=== PATIENT | female | born 1985 | race Caucasian/White ===

== ENCOUNTER 2019-08-01 05:21 | Emergency (ER) | payer OTHER ==
[~2019-08-01] VITALS: Ht 162.6 cm; Wt 88.9 kg
[2019-08-01] MEDS ORDERED: ONDANSETRON 2MG/ML, 2ML ONE (05:43)
[2019-08-01] MEDS ORDERED: MORPHINE SULFATE 4 MG/ML, 1ML ONE ×2 (05:43→06:27)
--- NOTE | 2019-08-01 05:45 | NUR ---
CT PENDING NEG. BETA.
[2019-08-01] MEDS: MORPHINE SULFATE 4 MG/ML, 1ML IVPush PRN ×2 (05:59→06:34)
[2019-08-01] MEDS ORDERED: SODIUM CHLORIDE FLUSH 10ML SYR IVF ONE (06:00)
[2019-08-01] MEDS ORDERED: ONDANSETRON 2MG/ML, 2ML IVPush ONE (06:00)
[2019-08-01 06:13] LABS: BASOPHILS # (AUTO) 0.01 x10^3/uL (0-0.1); BASOPHILS % (AUTO) 0 % (0-1); EOSINOPHILS # (AUTO) 0.11 x10^3/uL (0-0.4); EOSINOPHILS % (AUTO) 2 % (1-7); LYMPHOCYTES # (AUTO) 1.55 x10^3/uL (1-3.4); LYMPHOCYTES % (AUTO) 23 % (22-44); MD NO; MEAN CORPUSCULAR HEMOGLOBIN 31.5 pg (27.0-34.8); MEAN CORPUSCULAR HGB CONC 34.3 g/dL (32.4-35.8); MEAN CORPUSCULAR VOLUME 91.8 fL (80-100); MONOCYTES # (AUTO) 0.53 x10^3/uL (0.2-0.8); MONOCYTES % (AUTO) 8 % (2-9); NEUTROPHILS # (AUTO) 4.59 x10^3/uL (1.8-6.8); NEUTROPHILS % (AUTO) 68 % (42-75); PLATELET COUNT 154 x10^3/uL (130-400); RED BLOOD COUNT 4.58 x10^6/uL (3.82-5.3); RED CELL DISTRIBUTION WIDTH 12.1 % (9.6-15.2)
[2019-08-01] MEDS ORDERED: KETOROLAC 30 MG/1 ML ONE (06:15)
[2019-08-01 06:24] LABS: ALANINE AMINOTRANSFERASE 31 U/L (12-78); ALBUMIN 3.7 g/dL (3.4-5.0); ANION GAP 7 mmol/L (5-15); CALCIUM 8.8 mg/dL (8.5-10.1); CHLORIDE 111 mmol/L (98-107); CREATININE 1.08 mg/dL (0.55-1.02)
[2019-08-01] MEDS ORDERED: SODIUM CHLORIDE 0.9% 1,000 ML IV ONE (06:26)
[2019-08-01 06:28] LABS: ALKALINE PHOSPHATASE 36 U/L (45-117); BILIRUBIN,TOTAL 0.7 mg/dL (0.2-1.0)
[2019-08-01] MEDS ORDERED: KETOROLAC 30 MG/1 ML IVPush ONE ×2 (06:30→08:00)
[2019-08-01 06:39] LABS: CULTURE INDICATED? YES; MICROSCOPIC INDICATED
[2019-08-01 06:40] VITALS: BP 110/72
--- NOTE | 2019-08-01 06:55 | NUR ---
REPORT RECEIVED FROM ARMANDO DIA. PT RESTING ON Bocom W/ CALL LIGHT IN [facility].
--- NOTE | 2019-08-01 07:55 | NUR ---
STRAIGHT CATH URINE SPECIMEN COLLECTED AND SENT TO LAB. PT UPDATED ON POC. CALL LIGHT IN [place].
[2019-08-01 08:20] LABS: MICROSCOPIC INDICATED
[2019-08-01 08:32] LABS: CULTURE INDICATED? NO
--- NOTE | 2019-08-01 09:15 | NUR ---
Patient given discharge instructions and they have confirmed that they understand the instructions. Patient ambulatory with steady gait.
== END 2019-08-01 09:16 | disposition home or self-care (01) ==
LOC: ED 06:49
DX: N13.2 Hydronephrosis with renal and ureteral calculous obstruction (principal); N28.9 Disorder of kidney and ureter, unspecified; Z41.1 Encounter for cosmetic surgery
CPT/HCPCS: 36415; 74176; 80053; 81001; 83690; 84703; 85025; 87086; 96361; 96374; 96375; 96376; 99284; J1885; J2270; J2405; J7030

== ENCOUNTER 2019-08-04 07:51 | Emergency (ER) | payer OTHER ==
[~2019-08-04] VITALS: Ht 162.6 cm; Wt 88.0 kg
[2019-08-04] MEDS ORDERED: SODIUM CHLORIDE FLUSH 10ML SYR IVF ONE (08:30)
[2019-08-04 08:44] LABS: MICROSCOPIC AUTO
[2019-08-04 08:47] LABS: MEAN CORPUSCULAR HEMOGLOBIN 31.7 pg (27.0-34.8); MEAN CORPUSCULAR HGB CONC 34.6 g/dL (32.4-35.8); MEAN CORPUSCULAR VOLUME 91.6 fL (80-100); MEAN PLATELET VOLUME 8.9 fL (7.4-10.4); PLATELET COUNT 209 x10^3/uL (130-400); RED BLOOD COUNT 4.78 x10^6/uL (3.82-5.3); RED CELL DISTRIBUTION WIDTH 11.9 % (9.6-15.2)
[2019-08-04 08:49] LABS: CULTURE INDICATED? NO
[2019-08-04 08:50] LABS: ALANINE AMINOTRANSFERASE 35 U/L (12-78); ANION GAP 7 mmol/L (5-15); CALCIUM 9.1 mg/dL (8.5-10.1); CHLORIDE 107 mmol/L (98-107)
[2019-08-04 08:53] LABS: ALKALINE PHOSPHATASE 41 U/L (45-117); BILIRUBIN,TOTAL 0.4 mg/dL (0.2-1.0); TOTAL PROTEIN 7.7 g/dL (6.4-8.2)
[2019-08-04 09:07] LABS: BASOPHILS # (AUTO) 0.03 x10^3/uL (0-0.1); BASOPHILS % (AUTO) 0 % (0-1); EOSINOPHILS # (AUTO) 0.08 x10^3/uL (0-0.4); EOSINOPHILS % (AUTO) 1 % (1-7); LYMPHOCYTES % (AUTO) 16 % (22-44); MD SCAN; MONOCYTES # (AUTO) 0.49 x10^3/uL (0.2-0.8); MONOCYTES % (AUTO) 6 % (2-9); NEUTROPHILS # (AUTO) 5.91 x10^3/uL (1.8-6.8); NEUTROPHILS % (AUTO) 77 % (42-75)
[2019-08-04] MEDS ORDERED: ONDANSETRON 2MG/ML, 2ML IVPush ONE (09:30)
[2019-08-04] MEDS ORDERED: HYDROmorphone 2 MG/ML, 1ML IVPush PRN (09:30)
[2019-08-04] MEDS ORDERED: HYDROmorphone 1 MG/ML, 1ML INJ ONE (09:35)
[2019-08-04] MEDS ORDERED: ONDANSETRON 2MG/ML, 2ML ONE (09:35)
--- NOTE | 2019-08-04 09:49 | NUR ---
Pt to [facility] from [facility]. Has been seen by [facility], urine & blood tests back. Has renal stones, dx 2 days ago, using meds, drinking fluids but pain in ABD & low back & painful urination remains.
--- NOTE | 2019-08-04 10:02 | NUR ---
Medicated as per emar for 01/19 LBP. Placed on continuous SPO2 & NIBP monitoring.
--- NOTE | 2019-08-04 10:17 | NUR ---
millie askew spoke with dr aviles
--- NOTE | 2019-08-04 10:22 | NUR ---
Pain 6/10 at this time. No nausea.
[2019-08-04] MEDS ORDERED: KETOROLAC 30 MG/1 ML IVPush ONE (10:30)
[2019-08-04] MEDS ORDERED: KETOROLAC 30 MG/1 ML ONE (10:40)
--- NOTE | 2019-08-04 10:54 | NUR ---
Toradol IV given for continued pain. Will reassess for effect & give 2nd dose dilauded prn. Pt OOB to restroom w/out difficulty .
--- NOTE | 2019-08-04 10:57 | NUR ---
REPORT FROM TOAN DIA.
[2019-08-04 11:32] VITALS: BP 125/78
== END 2019-08-04 11:34 | disposition home or self-care (01) ==
LOC: ED 10:03
DX: N13.2 Hydronephrosis with renal and ureteral calculous obstruction (principal)
CPT/HCPCS: 36415; 74018; 80053; 81001; 85025; 99284; J1170; J2405

== ENCOUNTER 2020-02-06 12:01 | Day surgery (SDC) | payer OTHER ==
[2020-02-03 11:09] LABS: BASOPHILS % (AUTO) 0 % (0-1); EOSINOPHILS # (AUTO) 0.07 x10^3/uL (0-0.4); EOSINOPHILS % (AUTO) 1 % (1-7); LYMPHOCYTES # (AUTO) 1.24 x10^3/uL (1-3.4); LYMPHOCYTES % (AUTO) 22 % (22-44); MD NO; MEAN CORPUSCULAR HEMOGLOBIN 31.4 pg (27.0-34.8); MEAN CORPUSCULAR VOLUME 92.2 fL (80-100); MEAN PLATELET VOLUME 8.8 fL (7.4-10.4); MONOCYTES # (AUTO) 0.29 x10^3/uL (0.2-0.8); MONOCYTES % (AUTO) 5 % (2-9); NEUTROPHILS # (AUTO) 4.08 x10^3/uL (1.8-6.8); NEUTROPHILS % (AUTO) 72 % (42-75); PLATELET COUNT 210 x10^3/uL (130-400); RED BLOOD COUNT 4.34 x10^6/uL (3.82-5.3); RED CELL DISTRIBUTION WIDTH 12.4 % (9.6-15.2)
[2020-02-03 11:18] LABS: ANION GAP 4 mmol/L (5-15); CALCIUM 9.2 mg/dL (8.5-10.1); CHLORIDE 110 mmol/L (98-107); CREATININE 0.92 mg/dL (0.55-1.02)
[2020-02-03 11:22] LABS: HCG UR SG 1.008 (1.003-1.030)
[~2020-02-06] VITALS: Ht 162.6 cm; Wt 79.5 kg
[2020-02-06] MEDS ORDERED: LACTATED RINGERS 1,000 ML IV SCH (12:47)
[2020-02-06 12:48] VITALS: BP 123/77
[2020-02-06] MEDS ORDERED: MIDAZOLAM 1 MG/ML, 2ML ONE (12:58)
[2020-02-06] MEDS ORDERED: FENTANYL PF 100 MCG/2ML ONE ×2 (12:58→15:38)
[2020-02-06] MEDS ORDERED: CHLORHEXIDINE 15 ML UDC MM ONE (13:00)
[2020-02-06] MEDS ORDERED: LIDOCAINE-MPF 1%, 2ML INFIL ONE (13:00)
[2020-02-06] MEDS ORDERED: BUPIVACAINE/PF-EPI 0.25% 1:200K ONE (13:39)
[2020-02-06] MEDS ORDERED: LIDOCAINE-MPF 1%, 2ML ONE (14:03)
[2020-02-06] MEDS ORDERED: ACETAMINOPHEN 325 MG TABLET PO PRN (14:30)
[2020-02-06] MEDS ORDERED: ALBUTEROL SULFATE 2.5 MG/3 ML NPPB PRN (14:30)
[2020-02-06] MEDS ORDERED: LORazepam 2 MG/ML, 1ML IVPush PRN (14:30)
[2020-02-06] MEDS ORDERED: MEPERIDINE/PF 25MG/0.5ML IVPush PRN (14:30)
[2020-02-06] MEDS ORDERED: hydrALAzine 20 MG/ML, 1ML IV PRN (14:30)
[2020-02-06] MEDS ORDERED: PROMETHAZINE 25 MG/ML, 1ML IVPush PRN (14:30)
[2020-02-06] MEDS ORDERED: HYDROmorphone 1 MG/ML, 1ML INJ IVPush PRN (14:30)
[2020-02-06] MEDS ORDERED: LABETALOL 5MG/ML, 20ML IV PRN (14:30)
[2020-02-06] MEDS ORDERED: OXYcodone 5 MG/5 ML ORAL.SOL UDC PO PRN (14:30)
[2020-02-06] MEDS ORDERED: CEFAZOLIN 1,000 MG ONE (15:09)
[2020-02-06] MEDS ORDERED: DEXAMETHASONE 4 MG/ML, 1ML ONE (15:09)
[2020-02-06] MEDS ORDERED: KETOROLAC 30 MG/1 ML ONE (15:09)
[2020-02-06] MEDS ORDERED: PROPOFOL 10 MG/ML, 20ML ONE (15:09)
[2020-02-06] MEDS ORDERED: ONDANSETRON 2MG/ML, 2ML ONE (15:09)
[2020-02-06] MEDS ORDERED: ACETAMINOPHEN 650 MG/20.3 ML UDC ONE (15:34)
[2020-02-06] MEDS ORDERED: OXYcodone 5 MG/5 ML ORAL.SOL UDC ONE (15:34)
[2020-02-06] MEDS: FENTANYL PF 100 MCG/2ML IV PRN ×3 (15:40→15:50)
== END 2020-02-06 16:55 | disposition home or self-care (01) ==
LOC: OUT 12:01 → EDSTATUS 14:00 → OUT 16:55
PROVIDERS: ATTEND Obstetrics & Gynecology
DX: N92.0 Excessive and frequent menstruation with regular cycle (principal); Z20.828 Contact with and (suspected) exposure to other viral communicable diseases; Z98.890 Other specified postprocedural states; Z80.3 Family history of malignant neoplasm of breast
CPT/HCPCS: 36415; 58563; 80048; 81025; 85025; 87635; J0690; J1100; J1885; J2250; J2405; J2704; J3010; J7120

== ENCOUNTER → 2020-08-05 | Outpatient (CLI) | payer OTHER ==
[2020-08-05 09:29] LABS: BASOPHILS % (AUTO) 1 % (0-1); EOSINOPHILS % (AUTO) 1 % (1-7); LYMPHOCYTES % (AUTO) 31 % (22-44); MEAN CORPUSCULAR HEMOGLOBIN 31.8 pg (27.0-34.8); MEAN CORPUSCULAR HGB CONC 34.5 g/dL (32.4-35.8); MEAN PLATELET VOLUME 9.1 fL (7.4-10.4); MONOCYTES % (AUTO) 7 % (2-9); NEUTROPHILS % (AUTO) 61 % (42-75); PLATELET COUNT 205 x10^3/uL (130-400); RED BLOOD COUNT 4.54 x10^6/uL (3.82-5.3); RED CELL DISTRIBUTION WIDTH 12.6 % (9.6-15.2)
[2020-08-05 09:33] LABS: MD NO
[2020-08-05 09:36] LABS: ANION GAP 4 mmol/L (5-15); CALCIUM 9.1 mg/dL (8.5-10.1); CHLORIDE 111 mmol/L (98-107); CREATININE 0.94 mg/dL (0.55-1.02)
== END | disposition home or self-care (01) ==
LOC: STAR 08:41
PROVIDERS: ATTEND Obstetrics & Gynecology
DX: Z01.812 Encounter for preprocedural laboratory examination (principal); N94.6 Dysmenorrhea, unspecified; Z20.822 Contact with and (suspected) exposure to COVID-19
CPT/HCPCS: 80048; 84702; 85025; 87635

== ENCOUNTER 2020-08-11 12:28 | Day surgery (SDC) | payer OTHER ==
[~2020-08-11] VITALS: Ht 165.1 cm; Wt 80.8 kg
[2020-08-11 12:54] VITALS: BP 127/76
[2020-08-11] MEDS ORDERED: LACTATED RINGERS 1,000 ML IV SCH (13:00)
[2020-08-11] MEDS ORDERED: CHLORHEXIDINE 15 ML UDC MM ONE (13:00)
[2020-08-11] MEDS ORDERED: EPINEPHRINE 1 MG/ML, 1ML ONE (13:21)
[2020-08-11] MEDS ORDERED: FLUORESCEIN SODIUM 500 MG/5 ML ONE (13:21)
[2020-08-11] MEDS ORDERED: BUPIVACAINE/PF 0.25% ONE (13:21)
[2020-08-11] MEDS ORDERED: MIDAZOLAM 1 MG/ML, 2ML ONE (15:08)
[2020-08-11] MEDS ORDERED: FENTANYL PF 250 MCG/5ML ONE (15:12)
[2020-08-11] MEDS ORDERED: BUPIVACAINE/PF-EPI 0.25% 1:200K INFIL ONE (15:42)
[2020-08-11] MEDS ORDERED: ONDANSETRON 2MG/ML, 2ML ONE (16:39)
[2020-08-11] MEDS ORDERED: SUCCINYLCHOLINE 20 MG/ML, 10ML ONE (16:39)
[2020-08-11] MEDS ORDERED: PROPOFOL 10 MG/ML, 20ML ONE (16:39)
[2020-08-11] MEDS ORDERED: NEOSTIGMINE 1 MG/ML, 10ML ONE (16:39)
[2020-08-11] MEDS ORDERED: GLYCOPYRROLATE 0.2MG/1ML, 5ML ONE (16:39)
[2020-08-11] MEDS ORDERED: ROCURONIUM 10MG/ML,5ML ONE (16:39)
[2020-08-11] MEDS ORDERED: DEXAMETHASONE 4 MG/ML, 1ML ONE (16:39)
[2020-08-11] MEDS ORDERED: SUGAMMADEX 200 MG/2 ML IVPush ONE (16:39)
[2020-08-11] MEDS ORDERED: CEFAZOLIN 1,000 MG ONE (16:39)
[2020-08-11] MEDS ORDERED: MEPERIDINE/PF 100 MG/ML ONE (16:43)
[2020-08-11] MEDS ORDERED: OXYcodone 5 MG/5 ML ORAL.SOL UDC ONE (16:54)
[2020-08-11] MEDS ORDERED: FENTANYL PF 100 MCG/2ML ONE (16:54)
[2020-08-11] MEDS: FENTANYL PF 100 MCG/2ML IV PRN ×2 (16:59→17:29)
[2020-08-11] MEDS ORDERED: MEPERIDINE/PF 25MG/0.5ML IVPush PRN (17:00)
[2020-08-11] MEDS ORDERED: ACETAMINOPHEN 325 MG TABLET PO PRN (17:00)
[2020-08-11] MEDS ORDERED: PROMETHAZINE 25 MG/ML, 1ML IV PRN (17:00)
[2020-08-11] MEDS ORDERED: ALBUTEROL SULFATE 2.5 MG/3 ML NPPB PRN (17:00)
[2020-08-11] MEDS ORDERED: DIAZEPAM 5 MG/ML, 2ML IVPush PRN (17:00)
[2020-08-11] MEDS ORDERED: hydrALAzine 20 MG/ML, 1ML IV PRN (17:00)
[2020-08-11] MEDS ORDERED: LABETALOL 5MG/ML, 20ML IV PRN (17:00)
[2020-08-11] MEDS ORDERED: KETOROLAC 30 MG/1 ML IV PRN (17:00)
[2020-08-11] MEDS ORDERED: OXYcodone 5 MG/5 ML ORAL.SOL UDC PO PRN (17:00)
[2020-08-11] MEDS ORDERED: HYDROmorphone 1 MG/ML, 1ML INJ ONE (17:14)
[2020-08-11] MEDS: HYDROmorphone 2 MG/ML, 1ML IVPush PRN ×2 (17:24→17:43)
[2020-08-14] MEDS ORDERED: SENN-99 PO (23:28)
== END 2020-08-11 19:30 | disposition home or self-care (01) ==
LOC: OUT 12:28
PROVIDERS: ATTEND Obstetrics & Gynecology
DX: D25.1 Intramural leiomyoma of uterus (principal); N88.8 Other specified noninflammatory disorders of cervix uteri; N93.8 Other specified abnormal uterine and vaginal bleeding; Z98.890 Other specified postprocedural states; Z85.3 Personal history of malignant neoplasm of breast; Z72.89 Other problems related to lifestyle; Z79.899 Other long term (current) drug therapy
CPT/HCPCS: 58552; 81025; 88307; J0171; J0330; J0690; J1100; J1170; J2175; J2250; J2405; J2704; J2710; J3010; J7120